=== PATIENT | female | born 1995 ===

== ENCOUNTER 2017-07-24 16:20 | Emergency (ER) | payer OTHER ==
[~2017-07-24] VITALS: Ht 180.3 cm; Wt 74.8 kg
[~2017-07-24 16:20] MED LIST: BENZ100A PO; BIRTH CONTROL PATCH; CEPH500 PO; CLIN150 PO; CRUTCH3 USE; CYCL10 PO; Desyrel50 MG; HYDR1TAB94 PO; IBUP600 PO; METF500 PO; NORETHTP TOP; Norco 5-325 Ta1 EACH PO; OMEP20ER PO; Percocet 5-3251 EACH PO; Pyridium200 MG PO; Ultram50 MG PO; Zofran4 MG PO
== END 2017-07-24 17:35 | disposition home or self-care (01) ==
LOC: ER 16:20
DX: F41.9 Anxiety disorder, unspecified (principal)
CPT/HCPCS: 99283

== ENCOUNTER 2018-11-15 16:54 | Emergency (ER) | payer OTHER ==
[~2018-11-15] VITALS: Ht 180.3 cm; Wt 74.4 kg
[2018-11-15] MEDS ORDERED: IBUP800 PO (18:19)
== END 2018-11-15 18:27 | disposition home or self-care (01) ==
LOC: ER 16:54
DX: S92.501A Displaced unspecified fracture of right lesser toe(s), initial encounter for closed fracture (principal); S60.011A Contusion of right thumb without damage to nail, initial encounter; S70.211A Abrasion, right hip, initial encounter; S89.92XA Unspecified injury of left lower leg, initial encounter; X58.XXXA Exposure to other specified factors, initial encounter
CPT/HCPCS: 73130; 73562-LT; 73630; 99283-25